=== PATIENT | male | born 1965 | race Caucasian/White ===

== ENCOUNTER 2019-05-08 03:25 | Emergency (ER) | payer MEDICAID, SELFPAY ==
[2019-05-08] VITALS (12 sets, daily range): BP systolic 169–200; BP diastolic 94–111; PULSE 75–87; RESP 13–23; TEMP 36.7; O2SAT 93–99
--- NOTE | 2019-05-08 03:26 | W.ED.GENAD ---
Discharge Plan Disposition Patient Disposition: [facility] Condition: Stable Discharge Details Chief Complaint: Dizzy/Sync Clinical Impression: Stroke Primary Care Provider: Unknown,Unknown ED Provider: Joshua Abad [place] Meds and New Rx's Prescriptions: No Action Novolin 70/30 U-100 Insulin 100 unit/mL (70-30) Suspension 30 unit SUBCUT QAM RF: 0 Novolin 70/30 U-100 Insulin 100 unit/mL (70-30) Suspension 20 unit SUBCUT QHS RF: 0 clopidogrel [Plavix] 75 mg Tablet 75 mg PO DAILY RF: 0 tamsulosin 0.4 mg Capsule 0.4 mg PO DAILY RF: 0 aspirin 81 mg Tablet,Chewable 81 mg PO DAILY RF: 0 Medical Decision Making Patient presenting with dizziness, vomiting, visual changes which he cannot completely describe. He reports no history of strabismus or lazy eye but has disconjugate gaze present. Visual cueva are intact to confrontation. Extraocular muscles are intact yet the disconjugate gaze persists. He is not seeing double. He has slight ataxia involving left upper and somewhat left lower extremity. He reports being normal when he went to bed somewhere between 7 and 8. He woke up around midnight to use the bathroom and noticed things were not right at that time. He arrived here shortly before 3:30 AM. His last known normal baseline would be approximately 8 hours ago. I would give him an NIH score of 1 for the ataxia in the left upper extremity. His horizontal extraocular muscles appear to be intact. There is no visual field cut. His left lower extremity is not truly ataxic. Therefore would not score higher on the stroke scale. He has stopped taking his blood pressure medication and presumably his cholesterol medication. He is sent for stat CT head stroke protocol as well as CTA of brain and neck. Blood pressure is elevated but will give it a little bit to see if it comes down on its own before treating. Laboratory studies and EKG ordered. 04:20 -noncontrast head CT negative for anything acute. He did develop vomiting while being moved over to the CT table. He received Zofran for this. CTA of brain and neck performed. Because of his late arrival from the time last seen normal I did not wait for creatinine. It has come back elevated at 2, so we are hanging fluids. Other labs have returned are mostly unremarkable. Magnesium slightly low. EKG is sinus rhythm. 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 There have been no change in his neurologic status. Blood pressure currently 180/100. Call placed to [facility] transfer center to discuss with neurology. 05:00 - Patient CTA is read as critical stenosis of right ICA and severe stenosis of left vertebral artery. No clot mentioned. Blood has stabilized at the 180/100 range. Case discussed with neurology attending at [facility], Dr. Pavon. We will not treat blood pressure at this point as it is unlikely persistently elevated and with the 2 areas of significant stenosis could potentially make things worse. Will give full dose aspirin. Patient will be accepted to [facility] in transfer. She would like to discuss with her interventionalists whether there is any procedures that could be done tonight. If so he will be in ED to ED transfer. If not he will be ED to critical care transfer. I have discussed this with the patient he is aware of the pending transfer. Lab Data Lab results reviewed: Yes I reviewed the patient's lab results. ECG Data Attestation: I personally reviewed and interpreted this ECG (s) as follows: Prior ECG tracings: not available for review Interpretation: Normal sinus rhythm at 86. Normal axis and intervals. Q waves across the precordium consistent with anterior infarct presumed old. Nonspecific changes noted. HPI General Mode of arrival: EMS. Date/Time Provider Initiated Documentation: 05/08/19 03:35. Limitations to Documentation: no limitations. Information obtained by: patient and RN notes reviewed. HPI Narrative: Patient presents to ED by ambulance for evaluation of dizziness and vomiting. Patient went to bed feeling normal somewhere between 7 and 8 PM. He woke up at midnight because he had to go to the bathroom. He had difficulty ambulating to the bathroom. He had dizziness. He had vomiting. He did sustain a fall and struck the back of his head but had no loss of consciousness. He has no pain anywhere currently. He has never had anything like this previously. He reports that his vision is not right though is not describing diplopia or loss of vision but something is just not normal with his vision. He does have history of coronary disease status post CABG, hypertension for which she is not taking his medication, diabetes, presumed high cholesterol though again not on medications for this. He is a former smoker. Related Data Home Medications Medication Instructions Recorded Confirmed aspirin 81 mg PO DAILY 05/08/19 05/08/19 clopidogrel [Plavix] 75 mg PO DAILY 05/08/19 05/08/19 insulin NPH and regular human 20 unit SUBCUT QHS 05/08/19 05/08/19 [Novolin 70/30 U-100 Insulin] insulin NPH and regular human 30 unit SUBCUT QAM 05/08/19 05/08/19 [Novolin 70/30 U-100 Insulin] tamsulosin 0.4 mg PO DAILY 05/08/19 05/08/19 Allergies Allergy/AdvReac Type Severity Reaction Status Date / Time No Known Allergies Allergy Unverified 05/08/19 04:22 Review of Systems Narrative: 01/28 Review of Systems completed and is negative except as stated above in HPI (Systems reviewed: Const, Eyes, ENT, Resp, CV, GI, , MSK, Skin, Neuro) [facility] Medical History BPH (benign prostatic hyperplasia) (Chronic) CAD (coronary artery disease) (Chronic) Diabetes mellitus (Chronic) HTN (hypertension) (Chronic) Hypercholesterolemia (Chronic) Surgical History S/P CABG (coronary artery bypass graft) (Chronic) Social History Smoking/Tobacco Use Status: Former Tobacco Use Alcohol Intake: former Substance use type: does not use Do you feel safe at home: Yes Exam Narrative Exam Narrative: Vitals: Afebrile. Hypertensive. Otherwise normal vitals and room air pulse oximetry. Const: Obese male in NAD. HEENT: NC/AT. Normal facial exam. Eyes: Normal conjunctiva and sclera. PERRL. Dyscongugate gaze but EOMI present. VF in tact to confrontation. Neck: Supple. Trachea midline. Lungs: Normal respiratory effort. Lungs are clear. Cor: RRR without murmur/gallop. Good radial pulses. GI: Soft. NT/ND. Neuro: A+O x 3. Cranial nerves II through XII are intact although disconjugate gaze present. No obvious extraocular muscle dysfunction. Strength is 5 out of 5 throughout. Sensory is intact. Speech and mentation is normal. Gait is not tested. Slight ataxia involving left upper extremity. Left lower extremity without ataxia but very slow and deliberate in trying to perform [id number]. Ext: No C/C/E. No deformity or tenderness. Skin: Warm and dry without rash. Critical Care Time Critical Care Time Critical Care Time: Yes Total Critical Care Time: 60 Attestation: Upon my evaluation, this patient had a high probability of imminent or life-threatening deterioration, which required my direct attention, intervention, and personal management. I have personally provided minutes of critical care time exclusive of time spent on separately billable procedures. Time includes review of laboratory data, radiology results, discussion with consultants, and monitoring for potential decompensation. Interventions were performed as documented above.
--- NOTE | 2019-05-08 03:45 | DI.CT_ITS ---
EXAM: CT HEAD - STROKE PROTOCOL CLINICAL HISTORY: visual change; vertigo,confusionm weakness TECHNIQUE: Imaging Protocol: Axial computed tomography images with coronal and sagittal reformatted images were created and reviewed COMPARISON: No exams were available for comparison FINDINGS: Ventricles and Extra axial spaces: The ventricles and sulci are consistent with the patient's age. T here does appear to be mild small vessel ischemic disease. Hemorrhage: None. Cerebral parenchyma: Normal. Midline shift: None. Brainstem/Cerebellum: Normal. Calvarium: Normal. Visualized Paranasal sinuses/Mastoids: Clear. IMPRESSION: No acute intracranial process. DATA REPOSITORY: All CT scans at this facility are submitted to the National Radiology Data Registry (NRDR) Dose Index Registry (DIR) with the [employer] ([employer]). RADIATION OPTIMIZATION: All CT scans at this facility use at least one of these dose optimization te chniques: automated exposure control; mA and/or kV adjustment per patient size (includes targeted exa ms where dose is matched to clinical indication); or iterative reconstruction.
[2019-05-08] MEDS: Omnipaque 350 MG/ML 100 ML BTL IJ (03:48)
[2019-05-08] MEDS: Ondansetron 4 MG/2 ML VIAL (03:50)
--- NOTE | 2019-05-08 03:58 | DI.CT_ITS ---
EXAM: CT BRAIN NECK CTA CLINICAL HISTORY: vision change/vertigo. TECHNIQUE: Imaging Protocol: Axial CT angiography was performed with multi-slice acquisition and mu lti-planar and/or 3D reconstructions. CONTRAST MATERIAL: Intravenous: Omnipaque 350 Contrast volume:85 mL COMPARISON: No exams were available for comparison FINDINGS: CT angiography of the brain: Internal Carotid Arteries: Petrous: See below. Cavernous: Bilateral calcification. No significant stenosis. Cerebral: Normal. Middle Cerebral Arteries: Right: No aneurysm, occlusion or significant stenosis. Left: No aneurysm, occlusion or significant stenosis. Anterior Cerebral Arteries: Right: No aneurysm, occlusion or significant stenosis. Left: No aneurysm, occlusion or significant stenosis. Posterior Cerebral Arteries: Right: No aneurysm, occlusion or significant stenosis. Left: No aneurysm, occlusion or significant stenosis. Vertebral Arteries: Right: No aneurysm, occlusion or significant stenosis. Left: No aneurysm, occlusion or significant stenosis. Basilar Artery: No aneurysm, occlusion or significant stenosis. CT angiography of the neck: Carotid arteries: Right: There is calcification in the distal right common carotid artery causing 30-40 percent narrowi ng. Left: Unremarkable. No dissection, occlusion or stenosis. External carotid arteries: Right: No occlusion or significant stenosis. Left: No occlusion or significant stenosis. Internal carotid arteries: Right: There is calcification at the origin of the right internal carotid artery causing approximatel y 50 percent narrowing of the lumen. There is high-grade right internal carotid artery stenosis at t he level of the proximal transverse petrous portion. Left: No evidence of dissection, occlusion or significant stenosis. Vertebral arteries: Right: Unremarkable, no evidence of dissection, occlusion or significant stenosis. Left: There is marked narrowing of a long segment of the left cervical artery. IMPRESSION: 1. No acute abnormality on the CT angiography of the head with contrast. 2. High-grade right internal carotid artery stenosis at the level of the transverse petrous portion. 3. Long segment of high-grade stenosis of the cervical portion of the left vertebral artery. DATA REPOSITORY: All CT scans at this facility are submitted to the National Radiology Data Registry (NRDR) Dose Index Registry (DIR) with the [employer] (ACR). RADIATION OPTIMIZATION: All CT scans at this facility use at least one of these dose optimization te chniques: automated exposure control; mA and/or kV adjustment per patient size (includes targeted exa ms where dose is matched to clinical indication); or iterative reconstruction.
--- NOTE | 2019-05-08 04:01 | DI.VRAD_ITS ---
PROCEDURE INFORMATION: Exam: CT Head Without Contrast Exam date and time: 05/08/2019 3:50 AM Age: 53 years old Clinical indication: Dizziness and visual disturbance and walking, difficulty TECHNIQUE: Imaging protocol: Computed tomography of the head without contrast. Radiation optimization: All CT scans at this facility use at least one of these dose optimization techniques: automated exposure control; mA and/or kV adjustment per patient size (includes targeted exams where dose is matched to clinical indication); or iterative reconstruction. Other technique: STROKE PROTOCOL was implemented. COMPARISON: No relevant prior studies available. FINDINGS: Brain: Age- related chronic microvascular changes are noted within the white matter. Ventricles: The ventricles and sulci are prominent compatible with age-appropriate atrophy. Bones/joints: Unremarkable. No acute fracture. Sinuses: Visualized sinuses are unremarkable. No fluid levels. Mastoid air cells: Visualized mastoid air cells are well aerated. Soft tissues: Unremarkable. IMPRESSION: Age-appropriate atrophy and chronic microvascular change. ASSESSMENT: ASPECTS ([place] Stroke Program Early CT Score) is 10. Dictated and Authenticated by: Vishnu Ortiz MD. Ordering:FRANCISCO Lewis MD
[2019-05-08 04:06] LABS: Abs Immature Grans 0.04 k/cumm (0.0-0.09); Absolute Basophil Count 0.08 k/cumm (0.0-0.2); Absolute Eosinophil Count 0.05 k/cumm (0.0-0.7); Absolute Monocyte Count 0.46 k/cumm (0.11-0.7); Absolute Neutrophil Count 11.01 k/cumm (1.2-6.7); Basophils % 0.6; Eosinophils % 0.4; HCT 49.1 % (40.0-50.0); HGB 16.4 g/dL (13.5-17.5); Immature Grans % 0.3 %; Lymphocytes % 7.2; Mean Corp. HGB Concentration 33.4 g/dL (32.0-36.0); Mean Corpuscular Volume 83.8 fL (80-95); Mean Platelet Volume 12.2 fL (8.0-11.0); Monocytes % 3.7; Neutrophils % 87.8; Platelet Count 235 x1000/uL (130-400); RBC 5.86 m/cumm (4.50-6.00); White Blood Cell Count 12.54 k/cumm (4.4-10.8)
[2019-05-08 04:14] LABS: ALT 16 U/L (16-63); AST 20 U/L (15-37); Albumin 2.9 g/dL (3.4-5.0); Alkaline Phosphatase 94 U/L (46-116); Anion Gap 9.5 mmol/L (3-11); BUN 25 mg/dL (7-18); Bilirubin, Total 0.4 mg/dL (0.2-1.0); CO2 25.5 mmol/L (21.0-32.0); CREATININE 2.01 mg/dL (0.70-1.30); Calcium 8.9 mg/dL (8.5-10.1); Chloride 102 mmol/L (98-107); Estimated GFR 34.92 (mL/min/1.73m2); Glucose 223 mg/dL (74-106); Magnesium 1.7 mg/dL (1.8-2.4); Potassium 4.5 mmol/L (3.5-5.1); Sodium 137 mmol/L (136-145); Total Protein 6.6 g/dL (6.4-8.2); Troponin I < 0.05 ng/Ml (<0.06)
[2019-05-08] MEDS: Normal Saline 1,000 ML 150 ML IV (04:21)
[2019-05-08 04:31] LABS: PTT Activated 24.2 sec (21.0-31.4)
--- NOTE | 2019-05-08 04:31 | DI.VRAD_ITS ---
PROCEDURE INFORMATION: Exam: CT Angiography Head With Contrast Exam date and time: 05/08/2019 3:57 AM Age: 53 years old Clinical indication: Dizziness and giddiness and visual disturbance and weakness; Type not specified; Patient HX: Dizziness, visual disturbances, weakness, vomiting TECHNIQUE: Imaging protocol: Computed tomography angiography of the head with intravenous contrast. 3D rendering: MIP and/or 3D reconstructed images were created by the technologist. Contrast material: OMNIPAQUE 350; Contrast volume: 85 ml; Contrast route: IV RAC; COMPARISON: CT HEAD - STROKE PROTOCOL 05/08/2019 3:45 AM FINDINGS: Right internal carotid artery: Unremarkable. Intracranial segment is patent with no significant stenosis. No aneurysm. Right anterior cerebral artery: Unremarkable. No occlusion or significant stenosis. No aneurysm. Right middle cerebral artery: Unremarkable. No occlusion or significant stenosis. No aneurysm. Right posterior cerebral artery: Unremarkable. No occlusion or significant stenosis. No aneurysm. Right vertebral artery: Unremarkable. No occlusion or significant stenosis. No aneurysm. Left internal carotid artery: Unremarkable. Intracranial segment is patent with no significant stenosis. No aneurysm. Left anterior cerebral artery: Unremarkable. No occlusion or significant stenosis. No aneurysm. Left middle cerebral artery: Unremarkable. No occlusion or significant stenosis. No aneurysm. Left posterior cerebral artery: Unremarkable. No occlusion or significant stenosis. No aneurysm. Left vertebral artery: Unremarkable. No occlusion or significant stenosis. No aneurysm. Basilar artery: Unremarkable. No occlusion or significant stenosis. No aneurysm. IMPRESSION: No acute findings PROCEDURE INFORMATION: Exam: CT Angiography Neck With Contrast Exam date and time: 05/08/2019 3:57 AM Age: 53 years old Clinical indication: Dizziness and giddiness and visual disturbance and weakness; Type not specified; Patient HX: Dizziness, visual disturbances, weakness, vomiting TECHNIQUE: Imaging protocol: Computed tomography angiography of the neck with intravenous contrast. 3D rendering: MIP and/or 3D reconstructed images were created by the technologist. Radiation optimization: All CT scans at this facility use at least one of these dose optimization techniques: automated exposure control; mA and/or kV adjustment per patient size (includes targeted exams where dose is matched to clinical indication); or iterative reconstruction. Contrast material: OMNIPAQUE 350; Contrast volume: 85 ml; Contrast route: IV RAC; COMPARISON: CT HEAD - STROKE PROTOCOL 05/08/2019 3:45 AM FINDINGS: VASCULATURE: Right common carotid artery: Distal right common carotid artery stenosis of 40%. Right internal carotid artery: Proximal right internal carotid artery stenosis of 20% Proximal right internal carotid artery stenosis of approximately 50% High-grade right ICA stenosis at the level of the transverse Roberta portion has the appearance of a short segmental string sign/critical stenosis. Right external carotid artery: Unremarkable. No occlusion or stenosis of the origin. Right vertebral artery: Unremarkable. No stenosis. No dissection or occlusion. Left common carotid artery: Unremarkable. No stenosis. No dissection or occlusion. Left internal carotid artery: Unremarkable extracranial segment. No stenosis. No dissection or occlusion. Left external carotid artery: Unremarkable. No occlusion or stenosis of the origin. Left vertebral artery: The left vertebral artery is heterogeneous in caliber which likely reflect multifocal long segmental high-grade stenoses of the cervical left vertebral artery. NECK: Bones/joints: No acute fracture. Soft tissues: Normal. No significant soft tissue swelling. IMPRESSION: 1. High-grade right ICA stenosis at the level of the transverse Roberta portion has the appearance of a short segmental string sign/critical stenosis. 2. The left vertebral artery is heterogeneous in caliber which likely reflect multifocal long segmental high-grade stenoses of the cervical left vertebral artery. COMMENT: Reference per NASCET criteria for degree of stenosis: Mild: less than 50% stenosis. Moderate: 50-69% stenosis. Severe: 70-94% stenosis. Near occlusion: 95-99% stenosis. Dictated and Authenticated by: Vishnu Ortiz MD. Ordering:FRANCISCO Lewis MD
--- NOTE | 2019-05-08 04:57 | NUR.NOTE ---
Nursing Note: Dr Abad in to discuss test results with patient.
[2019-05-08] MEDS: Aspirin 81 MG CHEW 324 MG CH (05:01)
== END 2019-05-08 05:30 | disposition short-term general hospital (02) ==
LOC: ER 05:20
PROVIDERS: Emergency Provider Emergency Medicine; PCP Nurse Practitioner Adult Health
DX: I63.9 Cerebral infarction, unspecified (principal); R11.10 Vomiting, unspecified; I10 Essential (primary) hypertension; E11.9 Type 2 diabetes mellitus without complications; Z79.4 Long term (current) use of insulin
CPT/HCPCS: 70496; 70498; 80053; 86850; 86900; 86901; 93005; 96360; 99285; 99291; 70450; 83735; 84484; 85025; 85610; 85730; 86870; 93010; J2405; J3490